=== PATIENT | male | born 1955 | race Caucasian/White ===

== ENCOUNTER 2021-11-07 16:32 | Emergency (ER) | payer OTHER ==
[2021-11-07] MEDS ORDERED: NORCO 5-325 TA1 EACH PO (17:41)
== END 2021-11-07 18:02 | disposition home or self-care (01) ==
LOC: FER 16:32
DX: S43.102A Unspecified dislocation of left acromioclavicular joint, initial encounter (principal); I10 Essential (primary) hypertension; E11.9 Type 2 diabetes mellitus without complications; W01.0XXA Fall on same level from slipping, tripping and stumbling without subsequent striking against object, initial encounter; Y92.009 Unspecified place in unspecified non-institutional (private) residence as the place of occurrence of the external cause
CPT/HCPCS: 73030